=== PATIENT | male | born 1975 | race Caucasian/White ===

== ENCOUNTER 2017-06-20 09:30 | Day surgery (SDC) | payer OTHER ==
[2017-06-20] MEDS ORDERED: PROPOFOL 20 ML (10:51)
[2017-06-20] MEDS ORDERED: LIDOCAINE 2% (SDV) 5 ML INJ (10:51)
== END 2017-06-20 12:28 | disposition home or self-care (01) ==
LOC: GIL 09:30
DX: K64.4 Residual hemorrhoidal skin tags (principal); I10 Essential (primary) hypertension
CPT/HCPCS: 45380; 88305